=== PATIENT | male | born 1935 | race Caucasian/White ===

== ENCOUNTER 2019-06-28 08:30 | Day surgery (SDC) | payer MEDICARE, BC ==
[2019-06-27 12:35] LABS: BASOPHILS # (AUTO) 0.1 X10'3 (0-0.2); BASOPHILS % (AUTO) 0.7 % (0-1); EOSINOPHILS # (AUTO) 0.1 X10'3 (0-0.9); EOSINOPHILS % (AUTO) 1.4 % (0-6); HEMATOCRIT 43.6 % (42.0-52.0); LYMPHOCYTES # (AUTO) 1.8 X10'3 (1.1-4.8); LYMPHOCYTES % (AUTO) 24.2 % (21-51); MEAN CORPUSCULAR HEMOGLOBIN 31.1 PG (27.0-31.0); MEAN CORPUSCULAR HGB CONC 34.3 g/dL (33.0-36.5); MEAN CORPUSCULAR VOLUME 90.5 FL (78-98); MEAN PLATELET VOLUME 8.8 FL (7.4-10.4); MONOCYTES # (AUTO) 0.7 X10'3 (0-0.9); MONOCYTES % (AUTO) 9.1 % (2-12); NEUTROPHILS # (AUTO) 4.9 X10'3 (1.8-7.7); NEUTROPHILS % (AUTO) 64.6 % (42-75); PLATELET COUNT 157 X10'3 (140-440); RED BLOOD COUNT 4.82 X10'6 (4.70-6.10); RED CELL DISTRIBUTION WIDTH 13.5 % (11.5-14.5); WHITE BLOOD COUNT 7.6 X10'3 (4.5-11.0)
[2019-06-27 12:40] LABS: ALBUMIN 3.2 G/DL (3.4-5.0); ANION GAP 8 (8-16); BLOOD UREA NITROGEN 15 MG/DL (7-18); BUN/CREATININE RATIO 9.7 (5.4-32.0); CALCIUM 8.8 MG/DL (8.5-10.1); CHLORIDE 108 MMOL/L (99-107); CREATININE 1.54 MG/DL (0.60-1.10); GLUCOSE 106 MG/DL (70-104); POTASSIUM 3.8 MMOL/L (3.5-5.1); SODIUM 141 MMOL/L (135-145); TOTAL CARBON DIOXIDE 25.4 MMOL/L (24-32); eGFR 43 ML/MIN
[2019-06-27 12:45] LABS: PARTIAL THROMBOPLASTIN TIME 28 SECONDS (22-32)
[2019-06-28] VITALS (12 sets, daily range): BP systolic 128–161; BP diastolic 44–89
[~2019-06-28] VITALS: Ht 180.3 cm; Wt 100.8 kg
[~2019-06-28 08:30] MED LIST: APIX5TAB3 PO; ATOR20TA66 PO; BENA40TA8 PO; CEFU250T95 PO; CLOP75TA35 PO; LOSA100T57 PO; METO25TA6 PO; TAMS0.4C32 PO
[2019-06-28] MEDS ORDERED: cefazolin/dext.iso 2gm/50ml 50 ML IV ONE (08:45)
[2019-06-28] MEDS ORDERED: normal saline 1000ml 1,000 ML IV SCH (08:45)
[2019-06-28] MEDS ORDERED: FURO-150 PO (08:57)
[2019-06-28] MEDS ORDERED: POTA10TA19 PO (08:57)
[2019-06-28] MEDS ORDERED: HYDR-4069 PO (08:57)
[2019-06-28] MEDS ORDERED: fentaNYL/PF 50MCG/1 ML 2ML syringe ONE (10:18)
[2019-06-28] MEDS ORDERED: midazolam 2 mg/2 ml injection ONE ×2 (10:18→11:10)
[2019-06-28] MEDS ORDERED: LIDOcaine 1% W/epiNEPHrine 1:100,000 20ml vial ONE ×2 (10:18→11:16)
[2019-06-28] MEDS ORDERED: ceFAZolin 1000mg inj ONE ×2 (10:20→10:43)
[2019-06-28] MEDS ORDERED: ceFAZolin 1GM/D5W- ADD-VANTAGE 50 ML IV ONE (10:43)
[2019-06-28] MEDS ORDERED: normal saline 1000ml 1,000 ML IV ONE (13:00)
[2019-06-28] MEDS ORDERED: vancomycin/NS 1 GM ADD-VANTAGE 250 ML X 1 DOSE IV ONE (15:00)
== END 2019-06-28 18:15 | disposition home or self-care (01) ==
LOC: SSTAY O 08:30
PROVIDERS: ATTEND Internal Medicine Cardiovascular Disease
DX: I49.5 Sick sinus syndrome (principal); I48.0 Paroxysmal atrial fibrillation; N40.0 Benign prostatic hyperplasia without lower urinary tract symptoms; Z87.891 Personal history of nicotine dependence; Z79.899 Other long term (current) drug therapy; Z79.01 Long term (current) use of anticoagulants
CPT/HCPCS: 33208; 36415; 71046; 80048; 85025; 85610; 85730; 99152; 99153; C1785; C1898; J0690; J2250; J3010; J3370; J7030; 93005; A4565; A4620; C1894; J7050

== ENCOUNTER 2019-12-21 13:59 | Outpatient (CLI) | payer MEDICARE, BC ==
[~2019-12-21] VITALS: Ht 177.8 cm; Wt 101.6 kg
[~2019-12-21 13:59] MED LIST changes: -BENA40TA8 PO; -CEFU250T95 PO; -CLOP75TA35 PO; +FURO-150 PO; +HYDR-4069 PO; -METO25TA6 PO; +POTA10TA19 PO
[2019-12-21 14:31] LABS: TOTAL HEMOGLOBIN 14.1 G/dl (14.0-17.9)
[2019-12-21] MEDS ORDERED: albuterol 2.5 MG/3 ML nebule NEB ONE (14:45)
== END 2019-12-21 23:59 | disposition home or self-care (01) ==
LOC: RT 13:59
PROVIDERS: ATTEND Internal Medicine Cardiovascular Disease
DX: R06.02 Shortness of breath (principal)
CPT/HCPCS: 85018; 94010; 94727; 94729

== ENCOUNTER 2021-01-29 13:32 | Outpatient (CLI) | payer MEDICARE, BC ==
[2021-01-29 14:18] LABS: TOTAL HEMOGLOBIN 14.8 G/dl (14.0-18.0)
== END 2021-01-29 23:59 | disposition home or self-care (01) ==
LOC: RT 13:32
PROVIDERS: ATTEND Internal Medicine Cardiovascular Disease
DX: R06.02 Shortness of breath (principal); Z79.899 Other long term (current) drug therapy
CPT/HCPCS: 71046; 85018; 94010; 94727; 94729